=== PATIENT | female | born 1950 | race Caucasian/White ===

== ENCOUNTER 2022-02-19 21:54 | Inpatient (IN) | payer MEDICARE ==
[2022-02-19 23:02] LABS: Bilirubin Negative (Negative); Blood, Urine Negative (Negative); Clarity Clear (Clear); Glucose, Urine (Dipstick) 30 mg/dL (Negative); Ketone, Urine Negative (Negative); Leukocyte Negative Leu/uL (Negative); Nitrite Negative (Negative); Protein, Urine (Dipstick) Negative (Neg-Trace); Specific Gravity, Urine 1.004 (1.002-1.036); Urobilinogen Normal mg/dL (Less than 2); pH, Urine 6.5 (5.0-9.0)
[2022-02-19 23:04] LABS: #Eosinphils 0.1 thou/uL (0.0-0.7); #Lymphocytes 1.4 thou/uL (1.20-3.40); #Monocytes 0.3 thou/uL (0.11-0.59); #Neutrophils 5.5 thou/uL (1.40-6.50); %Eosinophils 1.6 % (0.0-10.0); %Lymphocytes 19.3 % (21.0-51.0); %Monocytes 4.2 % (0.0-10.0); %Neutrophils 74.9 % (42.0-75.0); Mean Corpuscular Hemoglobin 28.7 pg (27.0-31.0); Mean Corpuscular Volume 84.5 fL (78.0-98.0); Mean Platelet Volume 7.7 fL (7.4-10.4); Platelet Count 193 thou/uL (130-400); RBC Distribution Width 12.8 % (11.5-14.5); Red Blood Cell (RBC) Count 4.52 mill/uL (4.20-5.40); White Blood Cell (WBC) Count 7.3 thou/uL (4.8-10.8)
[2022-02-19 23:11] LABS: Prothrombin Time 12.9 sec (12.0-14.7)
[2022-02-19 23:12] LABS: PTT 24.1 sec (22.9-36.1)
[2022-02-19 23:27] LABS: ALT (SGPT) 43 U/L (8-55); AST (SGOT) 43 U/L (5-34); Albumin 3.7 g/dL (3.4-4.8); Alkaline Phosphatase 114 U/L (40-110); Anion Gap 17 mmol/L (10-20); BUN (Urea Nitrogen) 18 mg/dL (9.8-20.1); Bilirubin, Total 0.6 mg/dL (0.2-1.2); Calc. Creatinine Clearance 0 mL/min (70-130); Calcium 8.8 mg/dL (7.8-10.44); Carbon Dioxide 19 mmol/L (23-31); Chloride 106 mmol/L (98-107); Globulin 3.1 g/dL (2.4-3.5); Glucose 231 mg/dL (80-115); Lipase 44 U/L (8-78); Magnesium 1.6 mg/dL (1.6-2.6); Potassium 3.2 mmol/L (3.5-5.1); Protein, Total 6.8 g/dL (5.8-8.1); Sodium 139 mmol/L (136-145)
[2022-02-20] MEDS ORDERED: Magnesium 2 GM/50 ML BAG (IN WATER) ONE (00:39)
[2022-02-20] MEDS ORDERED: HumaLOG 300 UNITS/3 ML VIAL SC PRN (01:05)
[2022-02-20] MEDS ORDERED: HYDROcodone/Acetaminophen 7.5/325 mg Tablet PO PRN (01:05)
[2022-02-20] MEDS ORDERED: Dextrose 50% Abboject 50 ML SYRINGE SLOW IVP PRN (01:05)
[2022-02-20] MEDS ORDERED: Zolpidem Tartrate 5 MG TAB PO PRN (01:05)
[2022-02-20] MEDS ORDERED: Acetaminophen 325 MG TAB PO PRN (01:05)
[2022-02-20] MEDS ORDERED: Dextrose 5% in Water 1,000 ML IV PRN (01:05)
[2022-02-20] MEDS ORDERED: Ondansetron PF 4 MG/2 ML Vial IVP PRN (01:05)
[2022-02-20] MEDS ORDERED: Metoprolol Tartrate 25 MG TAB PO SCH ×2 (01:08→03:45)
[2022-02-20] MEDS ORDERED: Potassium Chloride 20 MEQ TAB PO SCH ×3 (01:15→18:00)
[2022-02-20] MEDS ORDERED: Diltiazem 125 MG in Sodium Chloride 0.9% 100 ML IVPB SCH (01:15)
[2022-02-20] MEDS ORDERED: Furosemide 40 MG/4 ML VIAL SLOW IVP SCH (01:15)
[2022-02-20] MEDS ORDERED: Enoxaparin Sodium 80 MG/0.8 ML SYRINGE ONE (01:43)
[2022-02-20 03:44] VITALS: BMI 25.6
[2022-02-20 03:54] LABS: SARS-CoV-2 NAA Rapid Test DETECTED (NotDetected)
[2022-02-20 04:25] LABS: ALT (SGPT) 39 U/L (8-55); AST (SGOT) 35 U/L (5-34); Albumin 3.6 g/dL (3.4-4.8); Alkaline Phosphatase 103 U/L (40-110); Anion Gap 15 mmol/L (10-20); BUN (Urea Nitrogen) 15 mg/dL (9.8-20.1); Bilirubin, Total 0.7 mg/dL (0.2-1.2); Calc. Creatinine Clearance 56 mL/min (70-130); Calcium 8.6 mg/dL (7.8-10.44); Carbon Dioxide 21 mmol/L (23-31); Cardiac Risk 6.2 (Less than 4.5); Chloride 109 mmol/L (98-107); Cholesterol 205 mg/dl (< 200 Desired); Globulin 2.9 g/dL (2.4-3.5); Glucose 219 mg/dL (80-115); HDL Cholesterol 33 mg/dL (>60 Neg Risk); LDL Cholesterol, Calculated 103 mg/dL; Magnesium 2.1 mg/dL (1.6-2.6); Potassium 3.4 mmol/L (3.5-5.1); Protein, Total 6.5 g/dL (5.8-8.1); Sodium 142 mmol/L (136-145); Triglycerides 345 mg/dL (Less than 150)
[2022-02-20 04:30] LABS: #Eosinphils 0.1 thou/uL (0.0-0.7); #Lymphocytes 1.8 thou/uL (1.20-3.40); #Monocytes 0.5 thou/uL (0.11-0.59); #Neutrophils 3.4 thou/uL (1.40-6.50); %Basophils 0.2 % (0.0-1.0); %Eosinophils 1.5 % (0.0-10.0); %Lymphocytes 31.2 % (21.0-51.0); %Monocytes 8.2 % (0.0-10.0); %Neutrophils 58.9 % (42.0-75.0); Hemoglobin 13.2 g/dL (12.0-16.0); Mean Corpuscular HGB CONC 33.9 g/dL (32.0-36.0); Mean Corpuscular Volume 85.5 fL (78.0-98.0); Mean Platelet Volume 8.1 fL (7.4-10.4); Platelet Count 165 thou/uL (130-400); Red Blood Cell (RBC) Count 4.55 mill/uL (4.20-5.40); White Blood Cell (WBC) Count 5.7 thou/uL (4.8-10.8)
[2022-02-20 04:31] LABS: Troponin I 0.035 ng/mL (< 0.028)
[2022-02-20] MEDS ORDERED: Potassium Phosphate 12 MMOL in Sodium Chloride 0.9% 100 ML IVPB SCH (06:00)
[2022-02-20] MEDS: HumaLOG 300 UNITS/3 ML VIAL SC PRN ×2 (06:46→11:14)
[2022-02-20] MEDS: Metoprolol Tartrate 25 MG TAB PO SCH ×2 (07:52→08:11)
[2022-02-20] MEDS: metFORMIN XR 500 MG TAB PO SCH (07:52)
[2022-02-20] MEDS: Furosemide 40 MG/4 ML VIAL SLOW IVP SCH (07:52)
[2022-02-20] MEDS: FLUoxetine HCl 20 MG CAP PO SCH (07:53)
[2022-02-20] MEDS ORDERED: Apixaban 5 MG TAB PO SCH (09:00)
[2022-02-20] MEDS ORDERED: Amiodarone 200 MG TAB PO SCH (10:00)
[2022-02-20] MEDS: Rosuvastatin 20 MG TAB PO SCH (20:48)
[2022-02-20] MEDS: Enoxaparin Sodium 60 MG/0.6 ML SYRINGE SC SCH (20:48)
[2022-02-20] MEDS: Amiodarone 200 MG TAB PO SCH (20:49)
[2022-02-20] MEDS: Guaifenesin DM 100-10/5 ML UDCUP PO PRN (20:54)
[2022-02-21 04:37] LABS: Anion Gap 14 mmol/L (10-20); BUN (Urea Nitrogen) 19 mg/dL (9.8-20.1); Calc. Creatinine Clearance 49 mL/min (70-130); Calcium 8.9 mg/dL (7.8-10.44); Carbon Dioxide 23 mmol/L (23-31); Chloride 107 mmol/L (98-107); Glucose 152 mg/dL (80-115); Magnesium 1.8 mg/dL (1.6-2.6); Potassium 4.8 mmol/L (3.5-5.1); Sodium 139 mmol/L (136-145)
[2022-02-21] MEDS: metFORMIN XR 500 MG TAB PO SCH (08:58)
[2022-02-21] MEDS: FLUoxetine HCl 20 MG CAP PO SCH (08:58)
[2022-02-21] MEDS: Enoxaparin Sodium 60 MG/0.6 ML SYRINGE SC SCH (08:58)
[2022-02-21] MEDS: Amiodarone 200 MG TAB PO SCH ×2 (08:58→21:18)
[2022-02-21] MEDS: Furosemide 40 MG/4 ML VIAL SLOW IVP SCH (08:59)
[2022-02-21] MEDS: Guaifenesin DM 100-10/5 ML UDCUP PO PRN ×2 (09:07→21:31)
[2022-02-21] MEDS: HumaLOG 300 UNITS/3 ML VIAL SC PRN (13:06)
[2022-02-21] MEDS: Rosuvastatin 20 MG TAB PO SCH (21:17)
[2022-02-21] MEDS: Apixaban 5 MG TAB PO SCH (21:18)
[2022-02-22 05:17] LABS: Anion Gap 14 mmol/L (10-20); BUN (Urea Nitrogen) 18 mg/dL (9.8-20.1); Calc. Creatinine Clearance 41 mL/min (70-130); Calcium 9.3 mg/dL (7.8-10.44); Carbon Dioxide 25 mmol/L (23-31); Chloride 100 mmol/L (98-107); Glucose 192 mg/dL (80-115); Potassium 4.7 mmol/L (3.5-5.1); Sodium 134 mmol/L (136-145)
[2022-02-22] MEDS: HumaLOG 300 UNITS/3 ML VIAL SC PRN (05:50)
[2022-02-22] MEDS: FLUoxetine HCl 20 MG CAP PO SCH (08:49)
[2022-02-22] MEDS: metFORMIN XR 500 MG TAB PO SCH ×2 (08:50→09:23)
[2022-02-22] MEDS: Spironolactone 25 MG TAB PO SCH ×2 (08:50→09:24)
[2022-02-22] MEDS: Losartan 25 MG TAB PO SCH ×2 (08:50→09:24)
[2022-02-22] MEDS: Amiodarone 200 MG TAB PO SCH (08:50)
[2022-02-22] MEDS: Apixaban 5 MG TAB PO SCH (08:50)
[2022-02-22 10:33] VITALS: BP 102/64; TEMP 98.5
== END 2022-02-22 11:52 | disposition home or self-care (01) | DRG 308 ==
LOC: ERS 21:54 → CCU 02-20 01:07 → 2NO 02-20 12:25
PROVIDERS: ADMIT Internal Medicine; ATTEND Internal Medicine
PROC: 8E0ZXY6 Isolation (ICD-10-PCS; principal; 2022-02-20)
DX: I48.0 Paroxysmal atrial fibrillation (principal); U07.1 COVID-19; I50.33 Acute on chronic diastolic (congestive) heart failure; N17.9 Acute kidney failure, unspecified; I13.0 Hypertensive heart and chronic kidney disease with heart failure and stage 1 through stage 4 chronic kidney disease, or unspecified chronic kidney disease; E87.1 Hypo-osmolality and hyponatremia; N18.30 Chronic kidney disease, stage 3 unspecified; E11.22 Type 2 diabetes mellitus with diabetic chronic kidney disease; E78.5 Hyperlipidemia, unspecified; F41.9 Anxiety disorder, unspecified; E87.6 Hypokalemia; E83.42 Hypomagnesemia; R74.01 Elevation of levels of liver transaminase levels; F32.A Depression, unspecified; I49.3 Ventricular premature depolarization; E66.9 Obesity, unspecified; E78.2 Mixed hyperlipidemia; Z82.49 Family history of ischemic heart disease and other diseases of the circulatory system; Z87.442 Personal history of urinary calculi; Z98.51 Tubal ligation status; Z90.49 Acquired absence of other specified parts of digestive tract; Z79.84 Long term (current) use of oral hypoglycemic drugs; Z79.82 Long term (current) use of aspirin; Z79.899 Other long term (current) drug therapy; Z68.24 Body mass index [BMI] 24.0-24.9, adult
CPT/HCPCS: 36415; 36416; 71045; 80048; 80053; 80061; 81003; 83690; 83735; 83880; 84443; 84484; 85025; 85379; 85610; 85730; 93005; 93010; 93306; 93970; 96365; 96366; 96368; 96372; J1650; J1815; J1940; J3475; U0002

== ENCOUNTER 2023-09-01 14:26 | Outpatient (CLI) | payer MEDICARE | END 2023-09-01 14:27 | disposition home or self-care (01) | LOC: BICCT 14:26 | PROVIDERS: ATTEND Family Medicine | DX: R31.9 Hematuria, unspecified (principal); N20.0 Calculus of kidney | CPT/HCPCS: 74178 ==

== ENCOUNTER 2024-07-08 10:34 | Outpatient (CLI) | payer MEDICARE | END 2024-07-08 10:35 | disposition home or self-care (01) | LOC: ULT 10:34 | PROVIDERS: ATTEND Family Medicine | DX: E83.52 Hypercalcemia (principal); E04.1 Nontoxic single thyroid nodule | CPT/HCPCS: 76536 ==

== ENCOUNTER 2024-07-22 07:34 | Outpatient (CLI) | payer MEDICARE | END 2024-07-22 07:35 | disposition home or self-care (01) | LOC: NM 07:34 | PROVIDERS: ATTEND Family Medicine | DX: E21.3 Hyperparathyroidism, unspecified (principal) | CPT/HCPCS: 78072; A9500 ==

== ENCOUNTER 2024-10-26 13:59 | Inpatient (IN) | payer MEDICARE ==
[2024-10-26 14:39] LABS: #Basophils 0.03 10x3/uL (0.0-0.2); %Basophils 0.5 % (0.0-1.0); %Eosinophils 1.3 % (0.0-10.0); %Lymphocytes 21.6 % (21.0-51.0); %Monocytes 7.6 % (0.0-10.0); %Neutrophils 68.8 % (42.0-75.0); Hemoglobin 13.5 g/dL (12.0-16.0); Mean Corpuscular HGB CONC 34.6 g/dL (32.0-36.0); Mean Corpuscular Hemoglobin 29.5 pg (27.0-31.0); Mean Corpuscular Volume 85.2 fL (78.0-98.0); Mean Platelet Volume 10.1 fL (7.4-10.4); Platelet Count 172 10x3/uL (130-400); RBC Distribution Width 13.1 % (11.5-14.5); Red Blood Cell (RBC) Count 4.58 mill/uL (4.20-5.40)
[2024-10-26 14:53] LABS: Calc. Creatinine Clearance 0 mL/min (70-130); Estimated GFR 47
[2024-10-26 15:05] LABS: INR-International Normal Ratio 1.1; Prothrombin Time 13.7 sec (12.0-14.7)
[2024-10-26 15:12] LABS: Troponin I 0.487 ng/mL (< 0.028)
[2024-10-26] MEDS ORDERED: Nitroglycerin 2% Ointment 1 INCH/1 GM Packet ONE (15:17)
[2024-10-26] MEDS ORDERED: Aspirin Chewable 81 MG TAB ONE (15:18)
[2024-10-26 15:49] LABS: ALT (SGPT) 35 U/L (8-55); AST (SGOT) 45 U/L (5-34); Albumin 4.2 g/dL (3.4-4.8); Alkaline Phosphatase 95 U/L (40-110); Anion Gap 18 mmol/L (10-20); BUN (Urea Nitrogen) 18 mg/dL (9.8-20.1); Bilirubin, Total 0.6 mg/dL (0.2-1.2); Calcium 10.2 mg/dL (7.8-10.44); Carbon Dioxide 21 mmol/L (23-31); Chloride 103 mmol/L (98-107); Globulin 3.6 g/dL (2.4-3.5); Glucose 340 mg/dL (83-110); Potassium 5.1 mmol/L (3.5-5.1); Protein, Total 7.8 g/dL (5.8-8.1); Sodium 137 mmol/L (136-145)
[2024-10-26] MEDS ORDERED: Pantoprazole 40 MG VIAL ONE (16:06)
[2024-10-26] MEDS ORDERED: Nitroglycerin 0.4 MG TAB (25 Tab Bottle) SL PRN (16:57)
[2024-10-26] MEDS ORDERED: Acetaminophen 325 MG TAB PO PRN (16:57)
[2024-10-26] MEDS ORDERED: Acetaminophen 650 MG Suppository PR PRN (16:57)
[2024-10-26] MEDS ORDERED: Dextrose 5% in Water 1,000 ML IV PRN (17:00)
[2024-10-26] MEDS ORDERED: Dextrose 50% Abboject 50 ML SYRINGE SLOW IVP PRN (17:00)
[2024-10-26] MEDS ORDERED: Glucagon 1 MG/ML KIT IM PRN (17:00)
[2024-10-26 17:13] LABS: Troponin I 0.632 ng/mL (< 0.028)
[2024-10-26 18:16] VITALS: BMI 24.5
[2024-10-26] MEDS: Rosuvastatin 20 MG TAB PO SCH (21:23)
[2024-10-26] MEDS: Flecainide 50 MG TAB PO SCH (21:23)
[2024-10-26] MEDS: Pantoprazole 40 MG VIAL IVP SCH (21:25)
[2024-10-26] MEDS: Insulin Regular, Human 100 UNIT/ML 10 ML VIAL SC PRN (21:25)
[2024-10-26 21:28] LABS: Troponin I 1.014 ng/mL (< 0.028)
[2024-10-27 04:24] LABS: #Basophils Less than 0.03 10x3/uL (0.0-0.2); %Basophils 0.4 % (0.0-1.0); %Eosinophils 2.9 % (0.0-10.0); %Neutrophils 57.5 % (42.0-75.0); Hematocrit 35.6 % (36.0-47.0); Hemoglobin 11.9 g/dL (12.0-16.0); Mean Corpuscular HGB CONC 33.4 g/dL (32.0-36.0); Mean Corpuscular Volume 86.6 fL (78.0-98.0); Mean Platelet Volume 10.4 fL (7.4-10.4); Platelet Count 144 10x3/uL (130-400); RBC Distribution Width 13.3 % (11.5-14.5); Red Blood Cell (RBC) Count 4.11 mill/uL (4.20-5.40)
[2024-10-27 04:42] LABS: Calc. Creatinine Clearance 45 mL/min (70-130); Estimated GFR 49
[2024-10-27 04:45] LABS: Anion Gap 14 mmol/L (10-20); BUN (Urea Nitrogen) 19 mg/dL (9.8-20.1); Calcium 9.6 mg/dL (7.8-10.44); Carbon Dioxide 22 mmol/L (23-31); Cardiac Risk 5.2 (Less than 4.5); Chloride 105 mmol/L (98-107); Cholesterol 194 mg/dl (< 200 Desired); Glucose 284 mg/dL (83-110); HDL Cholesterol 37 mg/dL (>60 Neg Risk); LDL Cholesterol, Calculated 101 mg/dL; Potassium 5.1 mmol/L (3.5-5.1); Sodium 136 mmol/L (136-145); Triglycerides 279 mg/dL (Less than 150)
[2024-10-27 04:47] LABS: Troponin I 1.109 ng/mL (< 0.028)
[2024-10-27] MEDS: Pantoprazole 40 MG VIAL IVP SCH (08:46)
[2024-10-27] MEDS: Insulin Regular, Human 100 UNIT/ML 10 ML VIAL SC PRN (11:13)
[2024-10-27 12:21] LABS: Hematocrit 37.2 % (36.0-47.0); Hemoglobin 12.6 g/dL (12.0-16.0); Mean Corpuscular HGB CONC 33.9 g/dL (32.0-36.0); Mean Corpuscular Hemoglobin 29.3 pg (27.0-31.0); Mean Corpuscular Volume 86.5 fL (78.0-98.0); Mean Platelet Volume 10.1 fL (7.4-10.4); Platelet Count 150 10x3/uL (130-400); RBC Distribution Width 13.2 % (11.5-14.5)
[2024-10-28 05:01] LABS: #Basophils Less than 0.03 10x3/uL (0.0-0.2); %Basophils 0.4 % (0.0-1.0); %Eosinophils 2.9 % (0.0-10.0); %Monocytes 7.7 % (0.0-10.0); %Neutrophils 61.6 % (42.0-75.0); Hematocrit 35.7 % (36.0-47.0); Hemoglobin 11.9 g/dL (12.0-16.0); Mean Corpuscular HGB CONC 33.3 g/dL (32.0-36.0); Mean Corpuscular Hemoglobin 29.3 pg (27.0-31.0); Mean Corpuscular Volume 87.9 fL (78.0-98.0); Platelet Count 152 10x3/uL (130-400); RBC Distribution Width 13.1 % (11.5-14.5); Red Blood Cell (RBC) Count 4.06 mill/uL (4.20-5.40)
[2024-10-28 05:12] LABS: ALT (SGPT) 25 U/L (8-55); AST (SGOT) 30 U/L (5-34); Albumin 3.6 g/dL (3.4-4.8); Alkaline Phosphatase 80 U/L (40-110); Anion Gap 13 mmol/L (10-20); BUN (Urea Nitrogen) 21 mg/dL (9.8-20.1); Bilirubin, Total 0.4 mg/dL (0.2-1.2); Calc. Creatinine Clearance 40 mL/min (70-130); Calcium 9.5 mg/dL (7.8-10.44); Carbon Dioxide 25 mmol/L (23-31); Chloride 105 mmol/L (98-107); Estimated GFR 42; Globulin 2.9 g/dL (2.4-3.5); Glucose 137 mg/dL (83-110); Magnesium 2.3 mg/dL (1.6-2.6); Potassium 4.8 mmol/L (3.5-5.1); Protein, Total 6.5 g/dL (5.8-8.1); Sodium 138 mmol/L (136-145)
[2024-10-28 05:30] LABS: Troponin I 0.965 ng/mL (< 0.028)
[2024-10-28] MEDS ORDERED: Lidocaine 1% PF 5 ML VIAL ONE (09:07)
[2024-10-28] MEDS ORDERED: PROPOFOL 40 ML ONE (09:07)
[2024-10-28] MEDS ORDERED: Ondansetron PF 4 MG/2 ML Vial ONE (10:37)
[2024-10-28] MEDS: GoLYTELY 4,000 ml Bottle PO SCH (18:50)
[2024-10-28] MEDS ORDERED: Aluminum & Magnesium Hydroxide 60 ML, diphenhydrAMINE 150 MG, Lidocaine 2% Viscous Solu... SSW PRN (19:39)
[2024-10-28] MEDS: MAGIC MOUTH WASH W/NYSTATIN SUSP 10 ML UDCUP SSW PRN (22:47)
[2024-10-29 05:11] LABS: #Basophils Less than 0.03 10x3/uL (0.0-0.2); #Eosinophils Less than 0.03 10x3/uL (0.0-0.7); %Basophils 0.1 % (0.0-1.0); %Lymphocytes 9.8 % (21.0-51.0); %Monocytes 5.1 % (0.0-10.0); %Neutrophils 84.6 % (42.0-75.0); Hematocrit 35.1 % (36.0-47.0); Mean Corpuscular HGB CONC 34.2 g/dL (32.0-36.0); Mean Corpuscular Hemoglobin 29.3 pg (27.0-31.0); Mean Corpuscular Volume 85.8 fL (78.0-98.0); Mean Platelet Volume 10.5 fL (7.4-10.4); Platelet Count 173 10x3/uL (130-400); Red Blood Cell (RBC) Count 4.09 mill/uL (4.20-5.40)
[2024-10-29 05:34] LABS: ALT (SGPT) 28 U/L (8-55); AST (SGOT) 36 U/L (5-34); Albumin 3.7 g/dL (3.4-4.8); Alkaline Phosphatase 80 U/L (40-110); Anion Gap 19 mmol/L (10-20); BUN (Urea Nitrogen) 25 mg/dL (9.8-20.1); Bilirubin, Total 0.6 mg/dL (0.2-1.2); Calc. Creatinine Clearance 43 mL/min (70-130); Calcium 9.1 mg/dL (7.8-10.44); Carbon Dioxide 22 mmol/L (23-31); Chloride 102 mmol/L (98-107); Estimated GFR 47; Globulin 3.4 g/dL (2.4-3.5); Glucose 195 mg/dL (83-110); Iron 81 ug/dL (50-170); Iron Binding Capacity, Total 239 mcg/dL (265-497); Magnesium 1.9 mg/dL (1.6-2.6); Potassium 3.9 mmol/L (3.5-5.1); Protein, Total 7.1 g/dL (5.8-8.1); Sodium 139 mmol/L (136-145)
[2024-10-29] MEDS ORDERED: PROPOFOL 40 ML ONE (07:48)
[2024-10-29] MEDS ORDERED: PROPOFOL 20 ML ONE (08:38)
[2024-10-29] MEDS: dilTIAZem CD 120 MG CAP PO SCH (09:40)
[2024-10-29] MEDS: Fluconazole 100 MG TAB PO SCH (09:41)
[2024-10-29 12:24] VITALS: BP 111/60; TEMP 97.8
== END 2024-10-29 13:07 | disposition home or self-care (01) | DRG 377 ==
LOC: ERS 13:59 → ERHOLD 16:17 → 2NO 17:46
PROVIDERS: ADMIT Internal Medicine; ATTEND Family Medicine
PROC: 0DB58ZX Excision of Esophagus, Via Natural or Artificial Opening Endoscopic, Diagnostic (ICD-10-PCS; principal; 2024-10-28)
PROC: 0DB68ZX Excision of Stomach, Via Natural or Artificial Opening Endoscopic, Diagnostic (ICD-10-PCS; 2024-10-28)
PROC: 0DBK8ZZ Excision of Ascending Colon, Via Natural or Artificial Opening Endoscopic (ICD-10-PCS; 2024-10-29)
PROC: 0DBH8ZZ Excision of Cecum, Via Natural or Artificial Opening Endoscopic (ICD-10-PCS; 2024-10-29)
PROC: 0W3P8ZZ Control Bleeding in Gastrointestinal Tract, Via Natural or Artificial Opening Endoscopic (ICD-10-PCS; 2024-10-29)
DX: K57.31 Diverticulosis of large intestine without perforation or abscess with bleeding (principal); I21.A1 Myocardial infarction type 2; B37.81 Candidal esophagitis; D62 Acute posthemorrhagic anemia; I48.0 Paroxysmal atrial fibrillation; K92.1 Melena; E11.22 Type 2 diabetes mellitus with diabetic chronic kidney disease; F32.A Depression, unspecified; I25.10 Atherosclerotic heart disease of native coronary artery without angina pectoris; E78.5 Hyperlipidemia, unspecified; Z90.49 Acquired absence of other specified parts of digestive tract; Z88.2 Allergy status to sulfonamides; Z88.1 Allergy status to other antibiotic agents; Z88.8 Allergy status to other drugs, medicaments and biological substances; K64.4 Residual hemorrhoidal skin tags
CPT/HCPCS: 36415; 36416; 71045; 80048; 80053; 80061; 82274; 82728; 83540; 83550; 83735; 84484; 85025; 85610; 86850; 86900; 86901; 88305; 88342; 93005; 93010; 96374; C1889; J1815; J2405; J2470; J2704

== ENCOUNTER 2025-07-28 11:00 | Inpatient (IN) | payer MEDICARE ==
[2025-07-28 11:18] LABS: #Basophils Less than 0.03 10x3/uL (0.0-0.2); %Basophils 0.5 % (0.0-1.0)
[2025-07-28 11:33] LABS: #Eosinophils 0.18 10x3/uL (0.0-0.7); #Monocytes 0.31 10x3/uL (0.11-0.59); #Neutrophils 2.53 10x3/uL (1.40-6.50); %Eosinophils 4.2 % (0.0-10.0); %Lymphocytes 29.6 % (21.0-51.0); %Monocytes 7.2 % (0.0-10.0); %Neutrophils 58.3 % (42.0-75.0); Hematocrit 35.6 % (36.0-47.0); Hemoglobin 11.7 g/dL (12.0-16.0); Mean Corpuscular Hemoglobin 28.3 pg (27.0-31.0); Mean Corpuscular Volume 86.2 fL (78.0-98.0); Platelet Count 138 10x3/uL (130-400); Red Blood Cell (RBC) Count 4.13 mill/uL (4.20-5.40); White Blood Cell (WBC) Count 4.33 10x3/uL (4.8-10.8)
[2025-07-28 11:34] LABS: Anion Gap 13 mmol/L (10-20); BUN (Urea Nitrogen) 12 mg/dL (9.8-20.1); Calc. Creatinine Clearance 0 mL/min (70-130); Calcium 9.3 mg/dL (7.8-10.44); Carbon Dioxide 24 mmol/L (23-31); Chloride 105 mmol/L (98-107); Glucose 312 mg/dL (83-110); Potassium 4.1 mmol/L (3.5-5.1); Sodium 138 mmol/L (136-145)
[2025-07-31] MEDS ORDERED: PHENYLEPHRINE-NS 100 MCG/ML 10 ML SYRINGE ONE (06:36)
[2025-07-31] MEDS ORDERED: Etomidate 40 MG (20 mL) VIAL ONE (06:37)
[2025-07-31] MEDS ORDERED: PROPOFOL 20 ML ONE (06:37)
[2025-07-31] MEDS ORDERED: Rocuronium Bromide 10 MG/ML (10ML VIAL) ONE (06:37)
[2025-07-31] MEDS ORDERED: Heparin 10,000 UNITS/1 ML VIAL 30,000 UNITS in Sodium Chloride 0.9% 1,000 ML FS SCH (07:00)
[2025-07-31] MEDS ORDERED: Lidocaine 1% PF 5 ML VIAL ONE (07:10)
[2025-07-31] MEDS ORDERED: CEFAZOLIN 1 GM VIAL ONE (07:51)
[2025-07-31] MEDS ORDERED: Heparin 30,000 units/30 ml VIAL ONE (08:36)
[2025-07-31] MEDS ORDERED: Cardioplegic Soln 1,000 ML BAG ONE (08:36)
[2025-07-31] MEDS ORDERED: Calcium Chloride 1 GM/10 ML Abboject SYRINGE ONE (08:36)
[2025-07-31] MEDS ORDERED: Heparin 5,000 UNITS/ML VIAL ONE (08:36)
[2025-07-31] MEDS ORDERED: Thrombin 5000 UNITS/5 ML VIAL ONE (08:36)
[2025-07-31] MEDS ORDERED: Albumin 5% 12.5 GM (250 mL) BOT IVPB PRN (10:57)
[2025-07-31] MEDS ORDERED: Nitroglycerin 50 MG/250 ML BOT 250 ML IVPB PRN (10:57)
[2025-07-31] MEDS ORDERED: Hetastarch 6% 500 ML 500 ML IVPB PRN (10:57)
[2025-07-31] MEDS ORDERED: NOREPINEPHRINE 8 MG/250 ML-D5W 250 ML IVPB PRN (11:00)
[2025-07-31] MEDS ORDERED: Guaifenesin DM 100-10/5 ML UDCUP PO PRN (11:00)
[2025-07-31] MEDS ORDERED: Bisacodyl 10 MG SUPP PR PRN (11:00)
[2025-07-31] MEDS ORDERED: Acetaminophen 325 MG TAB PO PRN (11:00)
[2025-07-31] MEDS ORDERED: Mag-Al 1200 mg/1200 mg/30 ML UDCUP PO PRN (11:00)
[2025-07-31 11:08] LABS: Actual Bicarbonate (HCO3a) 18.0 mEq/L (22-28); Base Excess (BEa) -7.0 mEq/L (-2.0 to +3.0); CO2 Tension 34.4 mmHg (35.0-45.0); Calcium, Ionized (arterial) 1.14 mmol/L (1.12-1.30); Hematocrit-ABG 32 % (36.0-47.0); Hemoglobin (Hb) 10.9 g/dL (12.0-16.0); O2 Tension (PaO2), arterial 70.0 mmHg (> 70.0); Potassium - ABG Lab 3.03 mmol/L (3.70-5.30); pH, Arterial 7.337 (7.35-7.45)
[2025-07-31 11:09] LABS: Puncture Site ALINE
[2025-07-31 11:10] LABS: ALV-art Gradient 243.500 mmHg (0-20)
[2025-07-31] MEDS ORDERED: Glucagon 1 MG/ML KIT SC PRN (11:15)
[2025-07-31] MEDS ORDERED: Dextrose 50% Abboject 50 ML SYRINGE SLOW IVP PRN (11:15)
[2025-07-31] MEDS: Magnesium 2 GM/50 ML(in water) 1 GM in Premix 1 BAG IVPB SCH (11:23)
[2025-07-31] MEDS: D5 1/2 NS w/20 mEq KCL 1,000 ML IV SCH (11:30)
[2025-07-31] MEDS: Ketorolac Tromethamine 30 MG (1 mL) VIAL IVP SCH (11:31)
[2025-07-31 11:32] LABS: #Basophils 0.03 10x3/uL (0.0-0.2); #Eosinophils 0.12 10x3/uL (0.0-0.7); #Monocytes 0.49 10x3/uL (0.11-0.59); #Neutrophils 5.82 10x3/uL (1.40-6.50); %Basophils 0.3 % (0.0-1.0); %Eosinophils 1.3 % (0.0-10.0); %Lymphocytes 28.9 % (21.0-51.0); %Monocytes 5.3 % (0.0-10.0); %Neutrophils 62.7 % (42.0-75.0); Hematocrit 29.9 % (36.0-47.0); Hemoglobin 9.8 g/dL (12.0-16.0); Mean Corpuscular Hemoglobin 28.1 pg (27.0-31.0); Mean Corpuscular Volume 85.7 fL (78.0-98.0); Platelet Count 118 10x3/uL (130-400); Red Blood Cell (RBC) Count 3.49 mill/uL (4.20-5.40); White Blood Cell (WBC) Count 9.28 10x3/uL (4.8-10.8)
[2025-07-31 11:36] LABS: INR-International Normal Ratio 1.4; PTT 30.8 sec (22.9-36.1); Prothrombin Time 17.0 sec (12.0-14.7)
[2025-07-31 11:42] LABS: Anion Gap 12 mmol/L (10-20); BUN (Urea Nitrogen) 9 mg/dL (9.8-20.1); Calc. Creatinine Clearance 47 mL/min (70-130); Calcium 7.6 mg/dL (7.8-10.44); Carbon Dioxide 21 mmol/L (23-31); Chloride 115 mmol/L (98-107); Glucose 161 mg/dL (83-110); Potassium 2.9 mmol/L (3.5-5.1); Sodium 145 mmol/L (136-145)
[2025-07-31] MEDS: Albumin 5% 12.5 GM (250 mL) BOT IVPB PRN (11:43)
[2025-07-31] MEDS: Sodium Bicarb 50 MEQ/50 ML Abboject 8.4% SYRINGE IVP SCH (11:45)
[2025-07-31] MEDS: Sodium Bicarb 50 MEQ/50 ML Abboject 8.4% SYRINGE ONE (12:03)
[2025-07-31 12:04] LABS: Platelet Adequacy Comment Platelets Decreased; Polychromasia SLIGHT = 2-3 cells HPF (0-2)
[2025-07-31 12:23] LABS: Anion Gap 13 mmol/L (10-20); BUN (Urea Nitrogen) 10 mg/dL (9.8-20.1); Calc. Creatinine Clearance 47 mL/min (70-130); Calcium 7.8 mg/dL (7.8-10.44); Carbon Dioxide 21 mmol/L (23-31); Chloride 113 mmol/L (98-107); Glucose 184 mg/dL (83-110); Potassium 3.4 mmol/L (3.5-5.1); Sodium 144 mmol/L (136-145)
[2025-07-31] MEDS: Potassium Chloride 20 MEQ (100 mL) BAG IVPB PRN (12:30)
[2025-07-31 14:58] LABS: #Basophils Less than 0.03 10x3/uL (0.0-0.2); #Eosinophils Less than 0.03 10x3/uL (0.0-0.7); #Monocytes 0.55 10x3/uL (0.11-0.59); #Neutrophils 4.25 10x3/uL (1.40-6.50); %Basophils 0.4 % (0.0-1.0); %Eosinophils 0.3 % (0.0-10.0); %Lymphocytes 14.6 % (21.0-51.0); %Monocytes 9.6 % (0.0-10.0); %Neutrophils 74.5 % (42.0-75.0); Hematocrit 27.4 % (36.0-47.0); Hemoglobin 9.0 g/dL (12.0-16.0); Mean Corpuscular Hemoglobin 28.6 pg (27.0-31.0); Mean Corpuscular Volume 86.3 fL (78.0-98.0); Platelet Count 83 10x3/uL (130-400); Red Blood Cell (RBC) Count 3.15 mill/uL (4.20-5.40); White Blood Cell (WBC) Count 5.70 10x3/uL (4.8-10.8)
[2025-07-31] MEDS: Gabapentin 300 MG CAP PO SCH (15:00)
[2025-07-31 16:30] LABS: Actual Bicarbonate (HCO3a) 22.9 mEq/L (22-28); Base Excess (BEa) -3.7 mEq/L (-2.0 to +3.0); CO2 Tension 48.8 mmHg (35.0-45.0); Calcium, Ionized (arterial) 1.16 mmol/L (1.12-1.30); Hematocrit-ABG 29 % (36.0-47.0); Hemoglobin (Hb) 10.0 g/dL (12.0-16.0); Potassium - ABG Lab 3.95 mmol/L (3.70-5.30); pH, Arterial 7.290 (7.35-7.45)
[2025-07-31 16:33] LABS: O2 Tension (PaO2), arterial 31.3 mmHg (> 70.0)
[2025-07-31] MEDS: INSULIN REGULAR IN 0.9 % NACL 100 UNITS in Premix 1 BAG IVPB SCH (17:04)
[2025-07-31] MEDS: Ondansetron PF 4 MG/2 ML Vial IVP PRN (17:20)
[2025-07-31 17:34] LABS: Hematocrit 26.3 % (36.0-47.0); Hemoglobin 8.8 g/dL (12.0-16.0)
[2025-07-31 17:51] LABS: Potassium 4.1 mmol/L (3.5-5.1)
[2025-07-31 19:00] LABS: ALV-art Gradient 139.750 mmHg (0-20); Actual Bicarbonate (HCO3a) 19.6 mEq/L (22-28); Base Excess (BEa) -4.2 mEq/L (-2.0 to +3.0); CO2 Tension 31.4 mmHg (35.0-45.0); Calcium, Ionized (arterial) 1.13 mmol/L (1.12-1.30); Hematocrit-ABG 29 % (36.0-47.0); Hemoglobin (Hb) 9.9 g/dL (12.0-16.0); O2 Tension (PaO2), arterial 106.2 mmHg (> 70.0); Potassium - ABG Lab 3.86 mmol/L (3.70-5.30); Puncture Site LINE; pH, Arterial 7.413 (7.35-7.45)
[2025-07-31] MEDS: Rosuvastatin 20 MG TAB PO SCH (20:40)
[2025-07-31] MEDS: Mupirocin 1 GM TUBE TP SCH (21:06)
[2025-08-01] MEDS: hydrALAZINE 20 MG/ML VIAL SLOW IVP PRN (05:27)
[2025-08-01 05:57] LABS: Anion Gap 13 mmol/L (10-20); BUN (Urea Nitrogen) 16 mg/dL (9.8-20.1); Calc. Creatinine Clearance 46 mL/min (70-130); Calcium 8.0 mg/dL (7.8-10.44); Carbon Dioxide 23 mmol/L (23-31); Chloride 112 mmol/L (98-107); Glucose 143 mg/dL (83-110); Potassium 4.7 mmol/L (3.5-5.1); Sodium 143 mmol/L (136-145)
[2025-08-01 06:04] LABS: #Basophils Less than 0.03 10x3/uL (0.0-0.2); #Eosinophils Less than 0.03 10x3/uL (0.0-0.7); #Monocytes 0.44 10x3/uL (0.11-0.59); #Neutrophils 6.95 10x3/uL (1.40-6.50); %Basophils 0.0 % (0.0-1.0); %Eosinophils 0.0 % (0.0-10.0); %Lymphocytes 5.9 % (21.0-51.0); %Monocytes 5.6 % (0.0-10.0); %Neutrophils 88.4 % (42.0-75.0); Hematocrit 26.9 % (36.0-47.0); Hemoglobin 9.0 g/dL (12.0-16.0); Mean Corpuscular Hemoglobin 28.7 pg (27.0-31.0); Mean Corpuscular Volume 85.7 fL (78.0-98.0); Platelet Count 97 10x3/uL (130-400); Red Blood Cell (RBC) Count 3.14 mill/uL (4.20-5.40); White Blood Cell (WBC) Count 7.86 10x3/uL (4.8-10.8)
[2025-08-01] MEDS ORDERED: Furosemide 20 MG TAB PO PRN (06:55)
[2025-08-01] MEDS ORDERED: Glucagon 1 MG/ML KIT IM PRN (07:01)
[2025-08-01] MEDS ORDERED: Dextrose 50% Abboject 50 ML SYRINGE SLOW IVP PRN (07:01)
[2025-08-01] MEDS: Enoxaparin 30 MG (0.3 mL) SYRINGE SC SCH (08:44)
[2025-08-01] MEDS: Magnesium 2 GM/50 ML(in water) 1 GM in Premix 1 BAG IVPB SCH (08:44)
[2025-08-01] MEDS: Aspirin 325 MG TAB PO SCH (08:49)
[2025-08-01] MEDS: CO Q-10 CAPSULE 100 MG PO SCH (08:49)
[2025-08-01] MEDS: Pantoprazole 40 MG DR.TAB PO SCH (08:50)
[2025-08-01] MEDS ORDERED: Famotidine/PF 20 mg/2ml Vial SLOW IVP SCH (09:00)
[2025-08-01] MEDS: SOLIFENACIN SUCCINATE 5 MG PO SCH (09:18)
[2025-08-01] MEDS ORDERED: Insulin Glargine 30 UNITS/0.3 ML VIAL SC PRN ×2 (11:02→16:49)
[2025-08-01] MEDS: FATTY ACID PO SCH (12:05)
[2025-08-01] MEDS: FLAXSEED PO SCH (12:05)
[2025-08-01] MEDS: OMEGA3 PO SCH (12:05)
[2025-08-02 04:49] LABS: #Basophils Less than 0.03 10x3/uL (0.0-0.2); #Eosinophils 0.03 10x3/uL (0.0-0.7); #Monocytes 0.65 10x3/uL (0.11-0.59); #Neutrophils 7.25 10x3/uL (1.40-6.50); %Basophils 0.2 % (0.0-1.0); %Eosinophils 0.3 % (0.0-10.0); %Lymphocytes 11.6 % (21.0-51.0); %Monocytes 7.2 % (0.0-10.0); %Neutrophils 80.0 % (42.0-75.0); Hematocrit 28.5 % (36.0-47.0); Hemoglobin 9.3 g/dL (12.0-16.0); Mean Corpuscular Hemoglobin 28.5 pg (27.0-31.0); Mean Corpuscular Volume 87.4 fL (78.0-98.0); Platelet Count 122 10x3/uL (130-400); Red Blood Cell (RBC) Count 3.26 mill/uL (4.20-5.40); White Blood Cell (WBC) Count 9.06 10x3/uL (4.8-10.8)
[2025-08-02 05:14] LABS: Anion Gap 11 mmol/L (10-20); BUN (Urea Nitrogen) 24 mg/dL (9.8-20.1); Calc. Creatinine Clearance 45 mL/min (70-130); Calcium 7.8 mg/dL (7.8-10.44); Carbon Dioxide 23 mmol/L (23-31); Chloride 107 mmol/L (98-107); Glucose 240 mg/dL (83-110); Potassium 5.8 mmol/L (3.5-5.1); Sodium 135 mmol/L (136-145)
[2025-08-02] MEDS: Losartan 25 MG TAB PO SCH (10:13)
[2025-08-03 03:47] LABS: Anion Gap 13 mmol/L (10-20); BUN (Urea Nitrogen) 32 mg/dL (9.8-20.1); Calc. Creatinine Clearance 46 mL/min (70-130); Calcium 7.8 mg/dL (7.8-10.44); Carbon Dioxide 24 mmol/L (23-31); Chloride 107 mmol/L (98-107); Glucose 153 mg/dL (83-110); Potassium 4.7 mmol/L (3.5-5.1); Sodium 139 mmol/L (136-145)
[2025-08-03 03:48] LABS: #Basophils Less than 0.03 10x3/uL (0.0-0.2); #Eosinophils 0.08 10x3/uL (0.0-0.7); #Monocytes 0.37 10x3/uL (0.11-0.59); #Neutrophils 3.06 10x3/uL (1.40-6.50); %Basophils 0.2 % (0.0-1.0); %Eosinophils 1.7 % (0.0-10.0); %Lymphocytes 23.9 % (21.0-51.0); %Monocytes 8.0 % (0.0-10.0); %Neutrophils 66.0 % (42.0-75.0); Hematocrit 25.8 % (36.0-47.0); Hemoglobin 8.1 g/dL (12.0-16.0); Mean Corpuscular Hemoglobin 28.1 pg (27.0-31.0); Mean Corpuscular Volume 89.6 fL (78.0-98.0); Platelet Count 94 10x3/uL (130-400); Red Blood Cell (RBC) Count 2.88 mill/uL (4.20-5.40); White Blood Cell (WBC) Count 4.64 10x3/uL (4.8-10.8)
[2025-08-03] MEDS: Furosemide 20 MG TAB PO SCH (07:30)
[2025-08-03] MEDS: Losartan 25 MG TAB PO SCH (07:31)
[2025-08-03 16:25] VITALS: BMI 25.1
[2025-08-04 07:37] LABS: #Basophils Less than 0.03 10x3/uL (0.0-0.2); #Eosinophils 0.13 10x3/uL (0.0-0.7); #Monocytes 0.52 10x3/uL (0.11-0.59); #Neutrophils 2.34 10x3/uL (1.40-6.50); %Basophils 0.2 % (0.0-1.0); %Eosinophils 3.2 % (0.0-10.0); %Lymphocytes 25.5 % (21.0-51.0); %Monocytes 12.9 % (0.0-10.0); %Neutrophils 58.0 % (42.0-75.0); Hematocrit 24.7 % (36.0-47.0); Hemoglobin 8.0 g/dL (12.0-16.0); Mean Corpuscular Hemoglobin 28.5 pg (27.0-31.0); Mean Corpuscular Volume 87.9 fL (78.0-98.0); Platelet Count 104 10x3/uL (130-400); Red Blood Cell (RBC) Count 2.81 mill/uL (4.20-5.40); White Blood Cell (WBC) Count 4.04 10x3/uL (4.8-10.8)
[2025-08-04 07:45] LABS: Anion Gap 11 mmol/L (10-20); BUN (Urea Nitrogen) 32 mg/dL (9.8-20.1); Calc. Creatinine Clearance 44 mL/min (70-130); Calcium 7.7 mg/dL (7.8-10.44); Carbon Dioxide 24 mmol/L (23-31); Chloride 110 mmol/L (98-107); Glucose 210 mg/dL (83-110); Potassium 5.0 mmol/L (3.5-5.1); Sodium 140 mmol/L (136-145)
[2025-08-04] MEDS ORDERED: Amiodarone 200 MG TAB PO SCH (15:00)
[2025-08-05 04:16] LABS: #Basophils Less than 0.03 10x3/uL (0.0-0.2); #Eosinophils 0.13 10x3/uL (0.0-0.7); #Monocytes 0.43 10x3/uL (0.11-0.59); #Neutrophils 2.42 10x3/uL (1.40-6.50); %Basophils 0.3 % (0.0-1.0); %Eosinophils 3.3 % (0.0-10.0); %Lymphocytes 25.0 % (21.0-51.0); %Monocytes 10.8 % (0.0-10.0); %Neutrophils 60.3 % (42.0-75.0); Hematocrit 23.5 % (36.0-47.0); Hemoglobin 7.6 g/dL (12.0-16.0); Mean Corpuscular Hemoglobin 28.8 pg (27.0-31.0); Mean Corpuscular Volume 89.0 fL (78.0-98.0); Platelet Count 119 10x3/uL (130-400); Red Blood Cell (RBC) Count 2.64 mill/uL (4.20-5.40); White Blood Cell (WBC) Count 4.00 10x3/uL (4.8-10.8)
[2025-08-05 04:32] LABS: Anion Gap 12 mmol/L (10-20); BUN (Urea Nitrogen) 19 mg/dL (9.8-20.1); Calc. Creatinine Clearance 50 mL/min (70-130); Calcium 7.7 mg/dL (7.8-10.44); Carbon Dioxide 23 mmol/L (23-31); Chloride 109 mmol/L (98-107); Glucose 179 mg/dL (83-110); Potassium 4.5 mmol/L (3.5-5.1); Sodium 139 mmol/L (136-145)
[2025-08-05 07:23] VITALS: BMI 24.7
[2025-08-05] MEDS: Amiodarone 200 MG TAB PO SCH ×2 (14:56→20:34)
[2025-08-06 04:45] LABS: #Basophils Less than 0.03 10x3/uL (0.0-0.2); #Eosinophils 0.14 10x3/uL (0.0-0.7); #Monocytes 0.43 10x3/uL (0.11-0.59); #Neutrophils 2.46 10x3/uL (1.40-6.50); %Basophils 0.3 % (0.0-1.0); %Eosinophils 3.5 % (0.0-10.0); %Lymphocytes 23.3 % (21.0-51.0); %Monocytes 10.8 % (0.0-10.0); %Neutrophils 61.6 % (42.0-75.0); Hematocrit 23.8 % (36.0-47.0); Hemoglobin 7.7 g/dL (12.0-16.0); Mean Corpuscular Hemoglobin 28.2 pg (27.0-31.0); Mean Corpuscular Volume 87.2 fL (78.0-98.0); Platelet Count 121 10x3/uL (130-400); Red Blood Cell (RBC) Count 2.73 mill/uL (4.20-5.40); White Blood Cell (WBC) Count 3.99 10x3/uL (4.8-10.8)
[2025-08-06 04:55] LABS: Anion Gap 11 mmol/L (10-20); BUN (Urea Nitrogen) 16 mg/dL (9.8-20.1); Calc. Creatinine Clearance 50 mL/min (70-130); Calcium 8.0 mg/dL (7.8-10.44); Carbon Dioxide 24 mmol/L (23-31); Chloride 109 mmol/L (98-107); Glucose 156 mg/dL (83-110); Potassium 4.5 mmol/L (3.5-5.1); Sodium 139 mmol/L (136-145)
[2025-08-06] MEDS: Pantoprazole 40 MG VIAL IVP SCH (08:10)
[2025-08-06] MEDS: Enoxaparin 40 MG (0.4 mL) SYRINGE SC SCH (08:14)
[2025-08-06 09:23] VITALS: TEMP 98.1
[2025-08-06 11:43] VITALS: BP 135/69
== END 2025-08-06 13:58 | disposition home or self-care (01) | DRG 236 ==
LOC: SURG A 07-31 05:45 → CCU 07-31 10:19 → IMCU/EMU 08-02 18:45
PROVIDERS: ADMIT Thoracic Surgery (Cardiothoracic Vascular Surgery); ATTEND Thoracic Surgery (Cardiothoracic Vascular Surgery)
PROC: 02100Z9 Bypass Coronary Artery, One Artery from Left Internal Mammary, Open Approach (ICD-10-PCS; principal; 2025-07-31)
PROC: 021009W Bypass Coronary Artery, One Artery from Aorta with Autologous Venous Tissue, Open Approach (ICD-10-PCS; 2025-07-31)
PROC: 06BQ4ZZ Excision of Left Saphenous Vein, Percutaneous Endoscopic Approach (ICD-10-PCS; 2025-07-31)
PROC: 02L70CK Occlusion of Left Atrial Appendage with Extraluminal Device, Open Approach (ICD-10-PCS; 2025-07-31)
PROC: 5A1221Z Performance of Cardiac Output, Continuous (ICD-10-PCS; 2025-07-31)
PROC: 3E03329 Introduction of Other Anti-infective into Peripheral Vein, Percutaneous Approach (ICD-10-PCS; 2025-07-31)
PROC: 3E033XZ Introduction of Vasopressor into Peripheral Vein, Percutaneous Approach (ICD-10-PCS; 2025-07-31)
PROC: 30233J1 Transfusion of Nonautologous Serum Albumin into Peripheral Vein, Percutaneous Approach (ICD-10-PCS; 2025-07-31)
PROC: 4A133R1 Monitoring of Arterial Saturation, Peripheral, Percutaneous Approach (ICD-10-PCS; 2025-07-31)
DX: I21.4 Non-ST elevation (NSTEMI) myocardial infarction (principal); I25.10 Atherosclerotic heart disease of native coronary artery without angina pectoris; I48.0 Paroxysmal atrial fibrillation; I10 Essential (primary) hypertension; Z88.2 Allergy status to sulfonamides; Z88.8 Allergy status to other drugs, medicaments and biological substances; Z79.899 Other long term (current) drug therapy; Z79.84 Long term (current) use of oral hypoglycemic drugs; F41.9 Anxiety disorder, unspecified; E11.9 Type 2 diabetes mellitus without complications; Z98.890 Other specified postprocedural states; Z90.49 Acquired absence of other specified parts of digestive tract; Z82.49 Family history of ischemic heart disease and other diseases of the circulatory system
CPT/HCPCS: 36415; 36416; 71045; 71046; 80048; 82805; 85025; 85610; 85730; 86850; 86900; 86901; 93005; 93010; 93798; 94002; A4311; A4648; C1751; C1889; J0169; J0282; J0360; J0665; J0690; J1100; J1642; J1644; J1650; J1815; J1885; J2250; J2405; J2440; J2470; J2704; J3010; J3373; J3475; J3480; J7050; J7070; P9045; Q0162; S0017